=== PATIENT | female | born 1990 | race Caucasian/White ===

== ENCOUNTER 2017-10-17 18:19 | Emergency (ER) | payer MEDICAID, OTHER ==
[~2017-10-17 18:19] MED LIST: OXYC-360 PO; Z.0.NO CURRENT MEDS; ZOFR4TAB3 SL
[2017-10-17 18:20] VITALS: BP_SYST 131; BP_SYST 132; BP_DIAS 63; BP_DIAS 70; PULSE 101; PULSE 121; RESP 15; TEMP 98.3; O2SAT 97
[2017-10-17] MEDS ORDERED: LIDO1PAD52 TOPICAL (18:47)
[2017-10-17] MEDS ORDERED: BACL10TA PO (18:47)
[2017-10-17] MEDS ORDERED: IBUP1TAB7 PO (18:47)
--- NOTE | 2017-10-17 18:51 | PD ---
HPI Chief Complaint: Back/ Neck Pain or Injury Time Seen by Provider: 18:43 Travel History International Travel<30 days: No Contact w/Intl Traveler<30days: No Traveled to known affect area: No History of Present Illness HPI 27-year-old female presents for evaluation of lower back pain. She reports that early this morning she was walking inside her mother's house and she felt a "pop" and felt lower back pain. The pain is a sharp pain which is constant, worse with movement or palpation. Denies abdominal pain, radicular symptoms, bowel or bladder incontinence, saddle anesthesia. She has been taking Naprosyn for symptom control. No other complaints at this time. PFSH Past Medical History Blood Disorders: No Cancer: No Cardiovascular Problems: Yes (HTN) Diminished Hearing: No Endocrine: No Genitourinary: No Immune Disorder: No Musculoskeletal: No Neurologic: No Psychiatric: No Reproductive: No Respiratory: No Immunizations Current: No ?: Not : 6 Para: 6 Miscarriage: 1 : 0 Tubal Ligation: Yes Past Surgical History Section: Yes (X 2 ) Other Surgery: Yes (CSECTION) Social History Alcohol Use: Yes (RARE) Tobacco Use: Yes (1 PPD) Substance Use: No Allergies-Medications (Allergen,Severity, Reaction): Coded Allergies: Sulfa (Sulfonamide Antibiotics) (Unverified Allergy, Mild, 04/20/17) Reported Meds & Prescriptions Reported Meds & Active Scripts Active Baclofen 10 Mg Tab 10 Mg PO TID 7 Days Lidocaine Patch 12 HR (Lidocaine) 5 % Patch 1 Patch TOPICAL DAILY PRN Remove patch after 12 hours Ibuprofen 800 Mg Tab 800 Mg PO Q6HR PRN Zofran ODT (Ondansetron HCl) 4 Mg Tab 4-8 Mg SL Q6HPRN FOR NAUSEA/VOMITING Percocet (Oxycodone/Acetaminophen) 5 Mg/325 Mg Tab 1-2 Tab PO Q4HPRN FOR PAIN Reported No Current Meds (Miscellaneous Medication) Misc Review of Systems Except as stated in HPI: all other systems reviewed are Neg Physical Exam Narrative GENERAL: Well-nourished female in no acute distress SKIN: Warm and dry. HEAD: Atraumatic. Normocephalic. EYES: Pupils equal and round. No scleral icterus. No injection or drainage. ENT: No nasal bleeding or discharge. Mucous membranes pink and moist. NECK: Trachea midline. No JVD. CARDIOVASCULAR: Regular rate and rhythm. No murmur appreciated. RESPIRATORY: No accessory muscle use. Clear to auscultation. Breath sounds equal bilaterally. GASTROINTESTINAL: Abdomen soft, non-tender, nondistended. Hepatic and splenic margins not palpable. MUSCULOSKELETAL: No obvious deformities. There is some tenderness to palpation to lower back paravertebral musculature. Patient maintains full range of motion of the lower extremities, 5 out of 5 muscle strength in all major muscle groups. NEUROLOGICAL: Awake and alert. No obvious cranial nerve deficits. Motor grossly within normal limits. Normal speech. PSYCHIATRIC: Appropriate mood and affect; insight and judgment normal. Data Data Last Documented VS Vital Signs Date Time Temp Pulse Resp B/P (MAP) Pulse Ox O2 Delivery O2 Flow Rate FiO2 10/17/17 18:20 98.3 101 15 132/70 (90) 97 Orders Orders Ketorolac Inj (Toradol Inj) (10/17/17 19:00) Orphenadrine Inj (Norflex Inj) (10/17/17 19:00) Spine, Lumbar - Ltd (Ap & Lat) (10/17/17 ) [facility] Medical Decision Making Medical Screen Exam Complete: Yes Emergency Medical Condition: Yes Medical Record Reviewed: Yes Differential Diagnosis Lumbar strain, compression fracture, spinal stenosis, ankylosing spondylosis Narrative Course The patient was given Toradol and Norflex injections. X-ray imaging reveals no acute abnormalities. The patient will be discharged with medication for symptomatic treatment. Diagnosis Primary Impression: Lumbar strain Additional Instructions: Medication as needed. Do not drive or drink alcohol when taking baclofen. Avoid strenuous activity. Follow-up with primary care physician in 2 weeks. Return for any emergent medical conditions. Med/Other Pt SpecificInfo: Prescription(s) given Scripts Baclofen (Baclofen) 10 Mg Tab 10 MG PO TID for Muscle Spasm for 7 Days, TAB 0 Refills Prov: Alek Donald MD 10/17/17 Lidocaine Patch 12 HR (Lidocaine Patch 12 HR) 5 % Patch 1 PATCH TOPICAL DAILY Y for PAIN, #1 BOX 0 Refills Remove patch after 12 hours Prov: Alek Donald MD 10/17/17 Ibuprofen (Ibuprofen) 800 Mg Tab 800 MG PO Q6HR Y for PAIN, #40 TAB 0 Refills Prov: Alek Donald MD 10/17/17 Disposition: 01 DISCHARGE HOME Condition: Stable Favian Antonio Oct 17, 2017 18:51
[2017-10-17] MEDS ORDERED: KETOROLAC TROMETHAMINE 60 MG/2 ML (IM) VIAL IM ONE (19:00)
[2017-10-17] MEDS ORDERED: ORPHENADRINE INJ 60 MG/2 ML AMP IM ONE (19:00)
--- NOTE | 2017-10-17 19:52 | RADRPT ---
EXAM DATE/TIME: 10/17/2017 19:10 [place] COMPARISON: No previous studies available for comparison. INDICATIONS : Low back pain. [place] pop while walking. MEDICAL HISTORY : None. SURGICAL HISTORY : None. ENCOUNTER: Initial ACUITY: 1 day PAIN SCORE: 7/10 LOCATION: Lumbar FINDINGS: Two view examination was performed. There are five non-rib bearing vertebral bodies. The vertebral bodies are in normal alignment without evidence of subluxation or scoliosis. The disc spaces are rhett ntained. The pedicles are intact. Bony mineralization is normal. No fracture is identified. CONCLUSION: 1. No acute findings. Ahsan Valderrama MD on October 17, 2017 at 19:49 Board Certified Radiologist. This report was verified electronically.
== END 2017-10-17 20:33 | disposition home or self-care (01) ==
LOC: NEPK 18:19
DX: S39.012A Strain of muscle, fascia and tendon of lower back, initial encounter (principal); I10 Essential (primary) hypertension; F17.210 Nicotine dependence, cigarettes, uncomplicated; Z88.2 Allergy status to sulfonamides; X58.XXXA Exposure to other specified factors, initial encounter; Y92.009 Unspecified place in unspecified non-institutional (private) residence as the place of occurrence of the external cause
CPT/HCPCS: 72100; 96372; 99283; J1885; J2360